=== PATIENT | male | born 1990 | race African-American/Black ===

== ENCOUNTER 2018-01-17 11:46 | Outpatient (CLI) | payer OTHER ==
--- NOTE | 2018-01-17 16:48 | XRay Report ---
XRAY LUMBAR SPINE THREE VIEWS: 01/17/18 11:46:00 CLINICAL: Back pain. FINDINGS: Normal vertebral body height and alignment. Disc space narrowing at L5-S1. The rest of the disc spaces are normal. Lucency at L5-S1 suggestive of pars defect. There is also facet joint sclerosis on the left at L4-5 and L5-S1. The pedicles are intact. No fracture. Normal soft tissues. IMPRESSION: Suspect at least a unilateral pars defect at L5-S1 but no spondylolisthesis. Left-sided facet joint arthropathy at L4-5 and L5-S1. Mild L5-S1 degenerative disc disease.
== END 2018-01-17 11:47 | disposition home or self-care (01) ==
LOC: SPVIMAG 11:46
PROVIDERS: ATTEND Physical Medicine & Rehabilitation
DX: M51.37 Other intervertebral disc degeneration, lumbosacral region (principal); M12.88 Other specific arthropathies, not elsewhere classified, other specified site; M62.81 Muscle weakness (generalized)
CPT/HCPCS: 72100

== ENCOUNTER 2018-02-05 16:03 | Outpatient (CLI) | payer OTHER ==
--- NOTE | 2018-02-06 11:13 | Magnetic Resonance Report ---
MRI LUMBAR SPINE WITHOUT CONTRAST HISTORY: Low back pain, ankle weakness. TECHNIQUE: axial T1, T2. sagittal T1,T2, STIR. COMPARISON: Lumbar spine films dated 01/17/18. FINDINGS: The conus terminates at L1. No signal abnormality or mass. The cauda equina is within normal limits. Normal height and alignment of the lumbar vertebra. The facet joints are in appropriate relationship. Normal bone marrow signal. No acute fracture or suspicious bone lesion. No pars defect is appreciated on MRI. Mild disc desiccation and narrowing is identified at L4-5. Moderate disc desiccation and narrowing is identified at L5-S1. The facet joints are in appropriate relationship. There is minimal fluid in the facet joints at L4-5 and L5-S1. No hypertrophic changes. L1-2: No abnormality. L2-3: No abnormality. L3-4: No abnormality. L4-5: A focal midline annular tear and small disc protrusion is identified. No significant mass effect. No central canal stenosis or neural foraminal narrowing. L5-S1: Moderate degenerative disc disease is again noted. There is a very large central disc herniation which essentially obliterates the spinal canal. The herniation measures 1.5 cm AP 1.7 cm transverse and 1.7 cm craniocaudal. There is severe central canal stenosis. Bilateral neural foraminal narrowing is estimated at 25%. IMPRESSION: Very large central disc herniation at L5-S1 resulting in severe central canal stenosis as outlined above. Midline annular tear and small disc protrusion without mass effect at L4-5. Mild lumbar spondylosis as described.
== END 2018-02-05 16:04 | disposition home or self-care (01) ==
LOC: MRI 16:03
PROVIDERS: ATTEND Physical Medicine & Rehabilitation
DX: M48.07 Spinal stenosis, lumbosacral region (principal); M47.896 Other spondylosis, lumbar region; M51.37 Other intervertebral disc degeneration, lumbosacral region
CPT/HCPCS: 72148